=== PATIENT | female | born 1985 | race Caucasian/White ===

== ENCOUNTER 2018-07-29 10:24 | Observation (INO) | payer OTHER ==
[~2018-07-29] VITALS: Ht 157.5 cm; Wt 75.0 kg
[2018-07-29 10:40] VITALS: BP 106/65
[2018-07-29] MEDS ORDERED: PREN-3 PO (10:46)
[2018-07-29 11:27] LABS: MICROSCOPIC INDICATED
[2018-07-29] MEDS ORDERED: D5%-LACTATED RINGERS 1,000 ML IV SCH (13:00)
== END 2018-07-29 14:55 | disposition home or self-care (01) ==
LOC: LDOP 10:24 → LDIP 12:57
PROVIDERS: ADMIT Obstetrics & Gynecology; ATTEND Obstetrics & Gynecology
DX: O36.8130 Decreased fetal movements, third trimester, not applicable or unspecified (principal); O21.2 Late vomiting of pregnancy; Z37.0 Single live birth; Z3A.38 38 weeks gestation of pregnancy
CPT/HCPCS: 59025; 76819; 81001; 87086; 96360; 99201; G0378; J7121; G0463

== ENCOUNTER 2018-08-04 07:43 | Outpatient (CLI) | payer OTHER ==
[~2018-08-04] VITALS: Ht 157.5 cm; Wt 73.6 kg
[~2018-08-04 07:43] MED LIST: PREN-3 PO
[2018-08-04 09:03] LABS: RAPID INFLUENZA A Negative (Negative); RAPID INFLUENZA B Negative (Negative)
[2018-08-04] MEDS ORDERED: ACETAMINOPHEN 325 MG TABLET ONE (09:23)
[2018-08-04] MEDS: ACETAMINOPHEN 325 MG TABLET PO PRN (09:26)
[2018-08-04 09:27] LABS: MICROSCOPIC INDICATED
[2018-08-04 09:51] LABS: CULTURE INDICATED? YES
[2018-08-04] MEDS: D5%-LACTATED RINGERS 1,000 ML IV ONE (10:20)
[2018-08-04] MEDS: GUAIFENESIN/COD200MG-20MG/10ML LIQUID PO PRN (10:40)
[2018-08-04 10:58] LABS: BASOPHILS % (AUTO) 0 % (0-1); EOSINOPHILS % (AUTO) 0 % (1-7); LYMPHOCYTES # (AUTO) 0.72 x10^3/uL (1-3.4); LYMPHOCYTES % (AUTO) 7 % (22-44); MD NO; MEAN CORPUSCULAR HEMOGLOBIN 30.5 pg (27.0-34.8); MEAN CORPUSCULAR HGB CONC 33.4 g/dL (32.4-35.8); MEAN CORPUSCULAR VOLUME 91.3 fL (80-100); MEAN PLATELET VOLUME 9.1 fL (7.4-10.4); MONOCYTES % (AUTO) 6 % (2-9); NEUTROPHILS # (AUTO) 8.95 x10^3/uL (1.8-6.8); NEUTROPHILS % (AUTO) 87 % (42-75); PLATELET COUNT 303 x10^3/uL (130-400); RED CELL DISTRIBUTION WIDTH 13.2 % (9.6-15.2)
[2018-08-04] MEDS ORDERED: POLY10DR3 EACHEYE (12:35)
== END 2018-08-04 13:20 | disposition home or self-care (01) ==
LOC: LDOP 07:43
PROVIDERS: ATTEND Obstetrics & Gynecology
DX: O42.913 Preterm premature rupture of membranes, unspecified as to length of time between rupture and onset of labor, third trimester (principal); R50.9 Fever, unspecified; Z3A.38 38 weeks gestation of pregnancy
CPT/HCPCS: 36415; 59025; 81001; 85025; 87086; 87400; 89060; 96360; 96361; 99211; J7121; G0463; Q0114

== ENCOUNTER 2018-08-06 02:24 | Inpatient (IN) | payer OTHER ==
[~2018-08-06] VITALS: Ht 157.5 cm; Wt 73.5 kg
[~2018-08-06 02:24] MED LIST changes: +POLY10DR3 EACHEYE
[2018-08-06] MEDS ORDERED: OXYTOCIN 30U/ 0.9% NaCL 500ML 500 ML IV ONE (02:40)
[2018-08-06] MEDS ORDERED: D5%-LACTATED RINGERS 1,000 ML IV SCH (02:40)
[2018-08-06] MEDS ORDERED: LACTATED RINGERS 1,000 ML IV SCH (02:40)
[2018-08-06] MEDS ORDERED: LIDOCAINE 1%, 20ML ONE (02:41)
[2018-08-06] MEDS ORDERED: OXYTOCIN 30U/ 0.9% NaCL 500ML 500 ML ONE (02:41)
[2018-08-06] MEDS ORDERED: MISOPROSTOL 200 MCG TABLET ONE (02:41)
[2018-08-06] MEDS ORDERED: NEWBORN KIT ONE (02:41)
[2018-08-06] MEDS ORDERED: GUAIFENESIN 100 MG/5 ML, 5ML UDC PO PRN ×2 (03:00→14:00)
[2018-08-06] MEDS ORDERED: FENTANYL PF 100 MCG/2ML IVPush PRN (03:00)
[2018-08-06] MEDS ORDERED: FENTANYL PF 100 MCG/2ML IV PRN (03:00)
[2018-08-06] MEDS ORDERED: ONDANSETRON 2MG/ML, 2ML IVPush PRN (03:00)
[2018-08-06 03:07] LABS: BASOPHILS # (AUTO) 0.03 x10^3/uL (0-0.1); BASOPHILS % (AUTO) 0 % (0-1); EOSINOPHILS % (AUTO) 0 % (1-7); LYMPHOCYTES # (AUTO) 0.88 x10^3/uL (1-3.4); LYMPHOCYTES % (AUTO) 9 % (22-44); MD NO; MEAN CORPUSCULAR HEMOGLOBIN 30.9 pg (27.0-34.8); MEAN CORPUSCULAR VOLUME 90.8 fL (80-100); MEAN PLATELET VOLUME 8.4 fL (7.4-10.4); MONOCYTES # (AUTO) 0.43 x10^3/uL (0.2-0.8); MONOCYTES % (AUTO) 5 % (2-9); NEUTROPHILS # (AUTO) 8.03 x10^3/uL (1.8-6.8); NEUTROPHILS % (AUTO) 86 % (42-75); PLATELET COUNT 299 x10^3/uL (130-400); RED BLOOD COUNT 4.04 x10^6/uL (3.82-5.3); RED CELL DISTRIBUTION WIDTH 13.2 % (9.6-15.2)
[2018-08-06 03:46] LABS: RAPID INFLUENZA A Negative (Negative); RAPID INFLUENZA B Negative (Negative)
[2018-08-06] MEDS: OXYTOCIN 30U/ 0.9% NaCL 500ML 500 ML IV SCH ×4 (04:54→14:54)
[2018-08-06] MEDS ORDERED: IBUPROFEN 600 MG TABLET PO PRN (05:00)
[2018-08-06] MEDS ORDERED: CALCIUM CARBONATE 500 MG TAB.CHEW PO PRN (05:00)
[2018-08-06] MEDS ORDERED: ONDANSETRON 2MG/ML, 2ML IV PRN (05:00)
[2018-08-06] MEDS ORDERED: ACETAMINOPHEN 325 MG TABLET PO PRN ×2 (05:00)
[2018-08-06] MEDS ORDERED: OXYcodone/APAP 5/325MG TABLET PO PRN ×2 (05:00)
[2018-08-06] MEDS ORDERED: DOCUSATE 100 MG CAPSULE PO PRN (05:00)
[2018-08-06] MEDS ORDERED: BISACODYL 10 MG SUPP PR PRN (05:00)
[2018-08-06] MEDS ORDERED: MISOPROSTOL 200 MCG TABLET PR PRN (05:00)
[2018-08-06 08:00] VITALS: BP 118/73
[2018-08-06] MEDS ORDERED: PRENATAL VIT/IRON/FA 1 EACH TABLET PO SCH (09:00)
[2018-08-06 12:00] VITALS: BP 105/78
[2018-08-06 12:41] LABS: BASOPHILS # (AUTO) 0.02 x10^3/uL (0-0.1); BASOPHILS % (AUTO) 0 % (0-1); EOSINOPHILS # (AUTO) 0.01 x10^3/uL (0-0.4); EOSINOPHILS % (AUTO) 0 % (1-7); LYMPHOCYTES # (AUTO) 1.03 x10^3/uL (1-3.4); LYMPHOCYTES % (AUTO) 12 % (22-44); MD NO; MEAN CORPUSCULAR HEMOGLOBIN 30.8 pg (27.0-34.8); MEAN CORPUSCULAR HGB CONC 33.9 g/dL (32.4-35.8); MEAN CORPUSCULAR VOLUME 91.1 fL (80-100); MEAN PLATELET VOLUME 8.3 fL (7.4-10.4); MONOCYTES % (AUTO) 6 % (2-9); NEUTROPHILS # (AUTO) 7.14 x10^3/uL (1.8-6.8); NEUTROPHILS % (AUTO) 82 % (42-75); PLATELET COUNT 296 x10^3/uL (130-400); RED BLOOD COUNT 3.81 x10^6/uL (3.82-5.3); RED CELL DISTRIBUTION WIDTH 13.1 % (9.6-15.2)
[2018-08-06 16:00] VITALS: BP 95/66
[2018-08-06 20:00] VITALS: BP 104/69
[2018-08-07] VITALS: BP 107/74
[2018-08-07] MEDS: OXYTOCIN 30U/ 0.9% NaCL 500ML 500 ML IV SCH (00:54)
== END 2018-08-07 11:04 | disposition home or self-care (01) | DRG 806 ==
LOC: LDOP 02:24 → LDIP 02:42 → 2NW 08:30
PROVIDERS: ADMIT Obstetrics & Gynecology; ATTEND Obstetrics & Gynecology
PROC: 10E0XZZ Delivery of Products of Conception, External Approach (ICD-10-PCS; principal; 2018-08-06)
PROC: 3E0P7VZ Introduction of Hormone into Female Reproductive, Via Natural or Artificial Opening (ICD-10-PCS; 2018-08-06)
PROC: 10907ZC Drainage of Amniotic Fluid, Therapeutic from Products of Conception, Via Natural or Artificial Opening (ICD-10-PCS; 2018-08-06)
DX: O76 Abnormality in fetal heart rate and rhythm complicating labor and delivery (principal); O98.82 Other maternal infectious and parasitic diseases complicating childbirth; Z37.0 Single live birth; O99.52 Diseases of the respiratory system complicating childbirth; O69.9XX0 Labor and delivery complicated by cord complication, unspecified, not applicable or unspecified; H10.89 Other conjunctivitis; J06.9 Acute upper respiratory infection, unspecified; Z3A.38 38 weeks gestation of pregnancy
CPT/HCPCS: 36415; 82803; 85025; 86850; 86900; 87400; G0378; J2590; J7120; J7121

== ENCOUNTER 2018-08-16 18:35 | Emergency (ER) | payer OTHER ==
[~2018-08-16] VITALS: Ht 157.5 cm; Wt 64.3 kg
[2018-08-16 19:26] LABS: ALANINE AMINOTRANSFERASE 28 U/L (12-78); ALBUMIN 3.7 g/dL (3.4-5.0); ANION GAP 7 mmol/L (5-15); CALCIUM 9.1 mg/dL (8.5-10.1); CHLORIDE 106 mmol/L (98-107); CREATININE 0.67 mg/dL (0.55-1.02)
--- NOTE | 2018-08-16 19:26 | NUR ---
FIRST CONTACT WITH PT. 10 DAYS POST VAGINAL DELIVERY, C/O FEVER, LOWER ABD PAIN RADIATING INTO BACK, HEAVIER BLEEDING. PT OF DR. HARKINS. TOOK TYLENOL AT HOME FOR FEVER. DENIES ANY URINARY SYMPTOMS/D/V/N AT THIS TIME. PT'S AOX4. RESPS EVEN AND UNLABORED.
--- NOTE | 2018-08-16 19:26 | NUR ---
PT AMB TO BR AND BACK TO RM WITH STEADY GAIT. PT PROVIDED SMALL AMOUNT OF URINE SAMPLE AT THIS TIME. THIS RN WALKED TO LAB FOR UA.
[2018-08-16 19:28] LABS: ALKALINE PHOSPHATASE 81 U/L (45-117); BASOPHILS # (AUTO) 0.01 x10^3/uL (0-0.1); BASOPHILS % (AUTO) 0 % (0-1); BILIRUBIN,TOTAL 0.4 mg/dL (0.2-1.0); EOSINOPHILS # (AUTO) 0.04 x10^3/uL (0-0.4); EOSINOPHILS % (AUTO) 0 % (1-7); LYMPHOCYTES # (AUTO) 1.11 x10^3/uL (1-3.4); LYMPHOCYTES % (AUTO) 12 % (22-44); MD NO; MEAN CORPUSCULAR HEMOGLOBIN 30.8 pg (27.0-34.8); MEAN CORPUSCULAR HGB CONC 33.1 g/dL (32.4-35.8); MEAN CORPUSCULAR VOLUME 93.1 fL (80-100); MONOCYTES # (AUTO) 0.34 x10^3/uL (0.2-0.8); MONOCYTES % (AUTO) 4 % (2-9); NEUTROPHILS # (AUTO) 7.87 x10^3/uL (1.8-6.8); NEUTROPHILS % (AUTO) 84 % (42-75); PLATELET COUNT 607 x10^3/uL (130-400); RED BLOOD COUNT 5.14 x10^6/uL (3.82-5.3); RED CELL DISTRIBUTION WIDTH 13.5 % (9.6-15.2); TOTAL PROTEIN 8.1 g/dL (6.4-8.2)
[2018-08-16 19:45] LABS: CULTURE INDICATED? YES; MICROSCOPIC INDICATED
[2018-08-16 20:20] VITALS: BP 108/73
--- NOTE | 2018-08-16 20:26 | NUR ---
PT GIVEN DC INSTRUCTIONS. PT AMB TO DC WITH STEADY GAIT. PT'S AOX4. RESPS EVEN AND UNLABORED. NO ACUTE DISTRESS AT DC.
== END 2018-08-16 20:27 | disposition home or self-care (01) ==
LOC: ED 20:26
DX: O72.1 Other immediate postpartum hemorrhage (principal)
CPT/HCPCS: 36415; 76830; 80053; 81001; 85025; 87086; 99284